=== PATIENT | female | born 1950 ===

== ENCOUNTER 2017-04-09 09:56 | Emergency (ER) | payer MEDICARE ==
[2017-04-09 10:03] VITALS: BP 156/86; PULSE 72; RESP 18; TEMP 98.8; O2SAT 96
--- NOTE | 2017-04-09 10:31 | C.PDOC ---
History Of Present Illness 66 yr old female presents to the ER with complaints of on going right wrist pain. Patient states she fell on March 01 and then again March 28 and injured the same wrist. Patient states she went to the family doctor and was sent in to the radiology department where she had a XRay done, showing a fracture. Patient was sent to the ER from radiology department. Patient denies any other injuries, chest pain, SOB, neck pain, back pain, shoulder pain, arm pain, weakness or numbness. Time Seen by Provider: 04/09/17 10:08 Chief Complaint (Nursing): Finger,Hand,&Wrist History Per: Patient History/Exam Limitations: no limitations Onset/Duration Of Symptoms: Days Past Medical History Reviewed: Historical Data, Nursing Documentation, Vital Signs Vital Signs: Last Vital Signs Temp 98.8 F 04/09/17 10:00 Pulse 72 04/09/17 10:00 Resp 18 04/09/17 10:00 BP 156/86 H 04/09/17 10:00 Pulse Ox 96 04/09/17 11:03 - Medical History PMH: HTN, Hypothyroidism Family History: States: No Known Family Hx - Social History Hx Alcohol Use: No Hx Substance Use: No - Immunization History Hx Tetanus Toxoid Vaccination: No Hx Influenza Vaccination: No Hx Pneumococcal Vaccination: No Review Of Systems Except As Marked, All Systems Reviewed And Found Negative. Cardiovascular: Negative for: Chest Pain Respiratory: Negative for: Shortness of Breath Musculoskeletal: Positive for: Other ((+) Right wrist pain). Negative for: Neck Pain, Shoulder Pain, Arm Pain, Back Pain Neurological: Negative for: Weakness, Numbness Physical Exam - Physical Exam Appears: Non-toxic, No Acute Distress Skin: Warm, Dry, No Rash Head: Atraumatic, Normacephalic Oral Mucosa: Moist Respiratory: Normal Breath Sounds, No Rales, No Rhonchi, No Stridor, No Wheezing Extremity: Normal ROM, Capillary Refill (<2 secs), Other (Right Wrist - Tenderness to the right distal wrist with swelling. No other joint involvement.) Pulses: Left Radial: Normal, Right Radial: Normal Neurological/Psych: Oriented x3, Normal Speech, Normal Motor ED Course And Treatment O2 Sat by Pulse Oximetry: 96 (RA) Pulse Ox Interpretation: Normal Progress Note: Volar splint is applied by it support technician. Patient is instructed to follow up with Ortho in 1-2 days. Return to ER if symptoms worsen. Medical Decision Making Medical Decision Making: IMPRESSION: Right distal radius fracture PLAN: * Motrin PO Disposition Counseled Patient/Family Regarding: Studies Performed, Diagnosis, Need For Followup, Rx Given - Disposition Referrals: Bryce Joy MD [Staff Provider] - Disposition: HOME/ ROUTINE Disposition Time: 10:28 Condition: STABLE Additional Instructions: follow up with orthopaedic, Dr. Joy in 2 days call to make an appointment take pain medication as needed return to ER if symptoms worsens or progress Prescriptions: Naproxen [Naprosyn] 500 mg PO BID PRN #16 tab PRN Reason: Pain, Moderate (4-7) Instructions: Wrist Fracture in Adults (ED) Forms: [employer] (Lao), [employer] (Welsh), Gen Discharge Inst Welsh Print Language: CITIZEN OF [place] - Clinical Impression Clinical Impression: Wrist fracture - Scribe Statement The provider has reviewed the documentation as recorded by the Natoibe Krissy Pandey Provider Attestation: All medical record entries made by the Scribe were at my direction and personally dictated by me. I have reviewed the chart and agree that the record accurately reflects my personal performance of the history, physical exam, medical decision making, and the department course for this patient. I have also personally directed, reviewed, and agree with the discharge instructions and disposition.
== END 2017-04-09 11:15 | disposition home or self-care (01) ==
LOC: C.ER 09:56
DX: S52.501A Unspecified fracture of the lower end of right radius, initial encounter for closed fracture (principal); W19.XXXA Unspecified fall, initial encounter

== ENCOUNTER 2017-07-10 06:44 | Emergency (ER) | payer MEDICARE ==
[2017-07-10 06:57] VITALS: RESP 20; TEMP 97; O2SAT 99
--- NOTE | 2017-07-10 07:28 | C.PDOC ---
History Of Present Illness 66 year old female presents to the ED for evaluation of epigastric abdominal pain which began last night. Patient states pain is localized, waxing/waning and associated with nausea and vomiting. Patient states her last episode of vomiting was at 0630. She denies fever, chills, shortness of breath, chest pain , diarrhea, history of peptic ulcer disease/gastritis. EPIG PAIN SINCE LAST NIGHT. LOCALIZED, WAX WANE +NV NO DIARRHEA. LAST VOMIT @ 0630. DENIES HO PUD/GASTRITIS. NO FEVER, SOB CP EXAM MILD DIST NONTOXIC ABD +EPIG TEND MILD SOFT NO R/G REMAINDER NEG Time Seen by Provider: 07/10/17 07:11 Chief Complaint (Nursing): Abdominal Pain History Per: Patient History/Exam Limitations: no limitations Onset/Duration Of Symptoms: Hrs, Waxing/Waning Current Symptoms Are (Timing): Still Present Location Of Pain/Discomfort: Epigastric Quality Of Discomfort: "Pain" Associated Symptoms: Nausea, Vomiting. denies: Fever, Chills, Diarrhea Additional History Per: Patient Abnormal Vaginal Bleeding: No Past Medical History Reviewed: Historical Data, Nursing Documentation, Vital Signs Vital Signs: Last Vital Signs Temp 97 F L 07/10/17 06:54 Pulse 89 07/10/17 08:44 Resp 20 07/10/17 08:44 BP 135/82 07/10/17 08:44 Pulse Ox 99 07/10/17 23:31 - Medical History PMH: HTN, Hypercholesterolemia, Hypothyroidism Surgical History: No Surg Hx Family History: States: Unknown Family Hx - Social History Hx Alcohol Use: No Hx Substance Use: No - Immunization History Hx Tetanus Toxoid Vaccination: No Hx Influenza Vaccination: No Hx Pneumococcal Vaccination: No Review Of Systems Constitutional: Negative for: Fever, Chills Cardiovascular: Negative for: Chest Pain Respiratory: Negative for: Shortness of Breath Gastrointestinal: Positive for: Nausea, Vomiting, Abdominal Pain (epigastric ). Negative for: Diarrhea Physical Exam - Physical Exam Appears: Non-toxic, Other (in mild distress ) Skin: Normal Color, Warm, Dry Head: Atraumatic, Normacephalic Eye(s): bilateral: Normal Inspection Oral Mucosa: Moist Neck: Supple Chest: Symmetrical, No Deformity, No Tenderness Cardiovascular: Rhythm Regular, No Murmur Respiratory: Normal Breath Sounds, No Rales, No Rhonchi, No Wheezing Gastrointestinal/Abdominal: Soft, Tenderness (mild, epigastric ), No Guarding, No Rebound Extremity: Normal ROM, Capillary Refill (less than 2 seconds ) Neurological/Psych: Oriented x3, Normal Speech, Normal Cognition ED Course And Treatment - Laboratory Results Result Diagrams: 07/10/17 07:44 07/10/17 07:44 ECG: Interpreted By Me ECG Rhythm: Sinus Rhythm ECG Interpretation: Normal Rate From EC O2 Sat by Pulse Oximetry: 99 (on RA) Pulse Ox Interpretation: Normal - Radiology CXR: Interpreted by Me CXR Interpretation: Yes: No Acute Disease Progress Note: Bloodwork, UA, CXR, EKG, Abdomen US ordered and reviewed. Maalox PO, Morphine IVP, Pepcid IVP, Percocet PO, Zofran IVP administered. Progress - Re-Evaluation Re-evaluation Note: 07/10/17 08:37 MILD IMPROVE. US REPORT REVIEWED. ADVISED DIET MODIFICATION, FU PMD AND/OR GI. - Data Reviewed Data Reviewed: Lab, Diagnostic imaging, EKG, Old records Disposition Counseled Patient/Family Regarding: Studies Performed, Diagnosis, Need For Followup, Rx Given - Disposition Referrals: Dennis Moy MD [Staff Provider] - Disposition: HOME/ ROUTINE Disposition Time: 08:37 Condition: IMPROVED Prescriptions: Ondansetron [Zofran Odt] 4 mg PO TID PRN #9 odt PRN Reason: Nausea/Vomiting oxyCODONE/Acetaminophen [Percocet 5/325 mg Tab] 1 ea PO Q6 PRN #10 tab PRN Reason: Pain, Moderate (4-7) Instructions: Gallstones (DC) Forms: [employer] (Niuean) Print Language: PASHTO - Clinical Impression Clinical Impression: Biliary colic - Scribe Statement The provider has reviewed the documentation as recorded by the Scribe (Lisa Gann) Provider Attestation: All medical record entries made by the Scribe were at my direction and personally dictated by me. I have reviewed the chart and agree that the record accurately reflects my personal performance of the history, physical exam, medical decision making, and the department course for this patient. I have also personally directed, reviewed, and agree with the discharge instructions and disposition.
[2017-07-10] MEDS ORDERED: Morphine 4 MG/ML VIAL ONE (07:39)
[2017-07-10 07:49] LABS: BASO # 0.1 K/uL (0.0-0.2); BASO % 0.5 % (0.0-2.0); EOS % 0.2 % (0.0-4.0); LYMPH # 1.6 K/uL (1.0-4.3); LYMPH % 15.1 % (20.0-40.0); MEAN CELL VOLUME 82.3 fL (81.0-99.0); MEAN CORPUSCULAR HEMOGLOBIN 28.5 pg (27.0-31.0); MEAN CORPUSCULAR HGB CONC 34.6 g/dL (33.0-37.0); MEAN PLATELET VOLUME 9.5 fL (7.2-11.7); MONO # 0.6 K/uL (0.0-0.8); MONO % 5.3 % (0.0-10.0); NEUT # 8.5 K/uL (1.8-7.0); NEUT % 78.9 % (50.0-75.0); RBC 4.93 Mil/uL (3.80-5.20); RED CELL DISTRIBUTION WIDTH 13.4 % (11.5-14.5); WHITE BLOOD COUNT 10.8 K/uL (4.8-10.8)
[2017-07-10 08:03] LABS: ALB/GLOB RATIO 1.3 (1.0-2.1); ALBUMIN 4.6 g/dL (3.5-5.0); ALT/SGPT 31 U/L (9-52); AST/SGOT 38 U/L (14-36); BLOOD UREA NITROGEN 13 mg/dL (7-17); CALCIUM 9.2 mg/dl (8.6-10.4); GFR AFRICAN-AMERICAN > 60; GFR NON-AFRICAN AMERICAN > 60; LIPASE 117 U/L (23-300)
[2017-07-10] MEDS ORDERED: Alum-Mag Hydrox-Simethicone Susp (30 mL) PO STA (08:29)
--- NOTE | 2017-07-10 08:31 | US ---
Right upper quadrant abdominal ultrasound History: Abdominal pain. Comparison: Abdominal ultrasound dated 11/27/2016 Technique: Real-time sonography was performed through the abdomen. Findings: Liver: 13.6 centimeters in length. Increased echogenicity of the hepatic parenchymal cortex suggestive for fatty infiltration versus hepatic parenchymal disease. Clinical correlation. Gallbladder: Cholelithiasis with prominent calculi measuring up to 1.8 centimeters. Associated gallbladder wall thickening and edema measuring up to 4.5 millimeters. Negative sonographic Vargas's sign. Common bile duct measures 4 millimeters, within normal limits. Limited visualization of the pancreas. Visualized aorta and IVC are preserved. Right kidney: 10.9 x 4.6 x 5.9 centimeters. No calculi or hydronephrosis. Impression: 1. Cholelithiasis with prominent calculi measuring up to 1.8 centimeters. Associated gallbladder wall thickening and edema measuring up to 4.5 millimeters. Negative sonographic Vargas's sign. If there is concern for acute cholecystitis, correlation with nuclear medicine study may be helpful if clinically indicated. 2. Increased echogenicity of the hepatic parenchymal cortex suggestive for fatty infiltration versus hepatic parenchymal disease. Clinical correlation. 3. Limited visualization of the pancreas.
[2017-07-10] MEDS ORDERED: Alum-Mag Hydrox-Simethicone Susp (30 mL) ONE (08:36)
[2017-07-10] MEDS ORDERED: Oxycodone/Acetaminophen 5/325 mg Tab PO STA (08:39)
[2017-07-10] MEDS ORDERED: Oxycodone/Acetaminophen 5/325 mg Tab ONE (08:41)
--- NOTE | 2017-07-10 08:41 | RAD ---
Chest x-ray single frontal view History: Abdominal pain Comparison: None available. Findings: Mild venous congestion. Patchy bibasilar airspace opacities. Mild right midlung atelectasis. Mild cardiomegaly. Degenerative changes in the spine and shoulders. Impression: Mild venous congestion. Patchy bibasilar airspace opacities. Mild right midlung atelectasis. Mild cardiomegaly.
[2017-07-10 08:44] VITALS: BP 135/82; PULSE 89
--- NOTE | 2017-07-11 20:51 | CARD ---
APPROVED REPORT EKG Measurement Heart [id number] <Conclusion> Normal sinus rhythm Possible Inferior infarct, age undetermined Cannot rule out Anterior infarct, age undetermined Abnormal ECG
== END 2017-07-10 08:58 | disposition home or self-care (01) ==
LOC: C.ER 06:44
DX: K80.50 Calculus of bile duct without cholangitis or cholecystitis without obstruction (principal); I10 Essential (primary) hypertension; E78.00 Pure hypercholesterolemia, unspecified
CPT/HCPCS: 71045; 76705; 80053; 83690; 84484; 85025; 93005; 96374; 96375; 99283; J2270; J2405

== ENCOUNTER 2018-05-24 15:15 | Outpatient (CLI) | payer MEDICARE, MEDICAID | END 2018-05-24 15:16 | disposition home or self-care (01) | LOC: C.MAMMO 15:15 | DX: Z12.31 Encounter for screening mammogram for malignant neoplasm of breast (principal) ==